=== PATIENT | male | born 1995 | race African-American/Black ===

== ENCOUNTER 2020-06-06 11:35 | Emergency (ER) | payer OTHER, SELFPAY ==
[2020-06-06 11:46] VITALS: BP 130/79; PULSE 71; RESP 16; TEMP 36.3; O2SAT 99
--- NOTE | 2020-06-06 11:53 | ED.DENTAL ---
HPI - Dental/Oral General Chief complaint: Dental/Oral Stated complaint: toothache Source: patient Mode of arrival: ambulatory Limitations: no limitations History of Present Illness HPI Narrative: Patient presents for evaluation of left upper dental pain for the last 3 days. He states that his pain is 1000 on a scale of 1-10, without descriptive quality. No fever, chills, nausea, vomiting. He believes he has a fractured tooth which is the underlying cause of his pain. He has been alternating Tylenol and ibuprofen without significant improvement in his symptoms thereafter. Related Data Allergies Allergy/AdvReac Type Severity Reaction Status Date / Time No Known Allergies Allergy Unverified 12/09/17 04:06 Review of Systems Review of Systems: Narrative: CONSTITUTIONAL: Denies fever, chills, or sweats. EYES: Denies visual changes, redness, or discharge. ENT: Denies rhinorrhea, congestion, sore throat, or otalgia. Reports left upper dental pain CARDIOVASCULAR: Denies chest pain, palpitations, or edema. RESPIRATORY: Denies cough or dyspnea. GASTROINTESTINAL: Denies abdominal pain, nausea, vomiting, or diarrhea. GENITOURINARY: Denies dysuria or hematuria. SKIN: Denies rash or itching. MUSCULOSKELETAL: Denies back pain, joint pain, or myalgia. NEUROLOGIC: Denies headache, numbness, dizziness, or weakness. PSYCHIATRIC: Denies anxiety or depression. PMFSH Past Medical History Medical History (Updated 06/06/20 @ 11:58 by Dean Strange, [facility], ) No pertinent past medical history Surgical History Surgical History H/O hernia repair Family History Family History (Updated 06/06/20 @ 11:55 by Dean Strange [facility], ) Mother No pertinent past medical history Father No pertinent past medical history Social History Social History Smoking status: Never smoker Alcohol intake: current Alcohol use details: Socially Substance use: current Substance use type: marijuana Living arrangements: with family Gender identity (if verbalized by the patient): Male Spiritual care concerns: No Exam Narrative: Exam Narrative: GENERAL: Well-appearing, well-nourished, and in no acute distress. HEAD: Normocephalic, atraumatic. EYES: PERRLA and EOMI. ENT: Nares clear, no rhinorrhea or epistaxis. Mucous membranes moist. Oropharynx without tonsillar hypertrophy exudate or other lesions. Bilateral TMs pearly og nonbulging. Tooth #13 is fractured. There is no visible or palpable abscess NECK: Supple. No adenopathy or masses. No carotid bruits or JVD CHEST: Clear to auscultation. No respiratory distress. No wheezes rales or rhonchi HEART: Regular rate and rhythm. No murmur heard. Normal peripheral pulses. ABDOMEN: Soft, nontender, nondistended, normal active bowel sounds. EXTREMITIES: Normal range of motion. No edema. SKIN: Warm, dry, no rash. NEURO: No focal deficits. Alert and oriented x3. PSYCH: Normal mood and affect. Course Course Emergency Course: 25-year-old male with several day history of dental pain. On physical exam there is no evidence of fracture. He has no trismus or problems handling secretions. Source of pain is likely fractured tooth. Will place patient on oral antibiotics. Add Tylenol with codeine as he has limited improvement in his pain with Tylenol and ibuprofen. Follow-up with dentist and return for any worsening symptoms. Vital Signs Vital signs: Vital Signs Temperature 36.3 C L 06/06/20 11:46 Pulse Rate 71 06/06/20 11:46 Respiratory Rate 16 06/06/20 11:46 Blood Pressure 130/79 06/06/20 11:46 Pulse Oximetry 99 06/06/20 11:46 Temperature 36.3 C L 06/06/20 11:46 Pulse Rate 71 06/06/20 11:46 Respiratory Rate 16 06/06/20 11:46 Blood Pressure 130/79 06/06/20 11:46 Pulse Oximetry 99 06/06/20 11:46 MDM - Dental/Oral Differential
== END 2020-06-06 12:05 | disposition home or self-care (01) ==
PROVIDERS: Emergency Provider Nurse Practitioner
DX: S02.5XXA Fracture of tooth (traumatic), initial encounter for closed fracture (principal)
CPT/HCPCS: 99213; G0463